=== PATIENT | male | born 1955 | race Caucasian/White ===

== ENCOUNTER 2019-12-28 21:09 | Emergency (ER) | payer BC ==
[2019-12-28] MEDS ORDERED: NA CHLORIDE 0.9% 1,000 ML ONE (22:00)
[2019-12-28 22:51] LABS: Absolute Lymphocytes (CBC) 1.3 K/uL (0.7-4.9); Basophils % 0.6 % (0-1.3); Hematocrit 44.3 % (39.6-49.0); Lymphocytes % 11.9 % (15.3-44.8); MPV 7.9 fL (7.6-11.3); RBC Red Blood Cell Count 5.02 M/uL (4.33-5.43)
[2019-12-28 23:13] LABS: ALT/SGPT 42 U/L (12-78); AST/SGOT 20 U/L (15-37); Albumin 3.5 g/dL (3.4-5.0); Alkaline Phosphatase 74 U/L (45-117); BUN Blood Urea Nitrogen 13 mg/dL (7-18); Bicarbonate 27 mmol/L (21-32); Bilirubin Direct 0.2 mg/dL (0-0.2); Bilirubin Total 0.5 mg/dL (0.2-1.0); Glucose Level 152 mg/dL (74-106); Lipase 182 U/L (73-393); Potassium 3.7 mmol/L (3.5-5.1); Protein, Total 6.8 g/dL (6.4-8.2); Sodium Level 139 mmol/L (136-145); Troponin (Emerg Dept Use Only) < 0.02 ng/mL (0.0-0.045)
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
[2019-12-29 00:15] LABS: Urine Blood NEGATIVE (NEG); Urine Glucose NEGATIVE (NEG); Urine Protein NEGATIVE (NEG)
[2019-12-29 01:23] VITALS: TEMP 97.6
[2019-12-29 01:24] VITALS: BP 148/86; O2SAT 99
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
== END 2019-12-29 00:11 | disposition home or self-care (01) ==
LOC: ER 21:09 → EDSEX 21:09 → ER 12-29 00:11
DX: R07.1 Chest pain on breathing (principal); V49.40XA Driver injured in collision with unspecified motor vehicles in traffic accident, initial encounter; I10 Essential (primary) hypertension; R73.03 Prediabetes; Z79.82 Long term (current) use of aspirin; Z95.1 Presence of aortocoronary bypass graft
CPT/HCPCS: 85025; 80048; 36415; 86900; 86850; 86901; 80076; 81003; 84484; 83690; 70450; 72125; 71260; 74177; 99285; Q9967; J7030